=== PATIENT | male | born 1985 | race Caucasian/White ===

== ENCOUNTER 2017-04-07 05:55 | Inpatient (IN) | payer BC ==
[~2017-04-07] VITALS: Ht 172.7 cm; Wt 86.4 kg
[2017-04-07 06:44] LABS: EOSINOPHIL (%) 0.9 % (0-5); EOSINOPHIL COUNT 0.1 K/uL (0-0.3); IMMATURE GRANULOCYTE (%) 0.2 % (0.0-0.7); INSTRUMENT ABS NEUTROPHIL CT 8.1 K/uL; LYMPHOCYTE COUNT 1.8 K/uL (1.0-2.8); MCHC 34.9 G/DL (30.0-36.0); MCV 86.1 FL (86-99); MEAN PLAT.VOLUME 9.6 uM^3 (9.0-12.4); MONOCYTE (%) 9.7 % (3-12); MONOCYTE COUNT 1.1 K/uL (0-0.8); NEUTROPHIL (%) 72.8 % (45-76); NEUTROPHIL COUNT 8.1 K/uL (1.8-6.4); PLATELET COUNT 197 K/uL (156-360); RBC DIS.WIDTH-CV 12.4 % (11.8-14.6); RBC DIS.WIDTH-SD 39.3 % (39-53); RED BLOOD COUNT 4.76 M/uL (4.00-5.50); WHITE BLOOD COUNT 11.1 K/uL (4.1-10.2)
[2017-04-07 07:02] LABS: ANION GAP 10 MEQ/L (2-14); CHLORIDE 104 MEQ/L (99-109); POTASSIUM 3.6 MEQ/L (3.7-5.4); SAMPLE HEMOLYSIS CHECK 0; SAMPLE ICTERIC CHECK 0; SAMPLE LIPEMIA CHECK 0; SODIUM 138 MEQ/L (136-147)
[2017-04-07 07:08] LABS: GFR ESTIMATE (CALCULATED) > 59 mL/min/; GLUCOSE 110 mg/dL (70-99); UREA NITROGEN (BUN) 13 mg/dL (9-23)
[2017-04-07 10:48] LABS: TROP-I INTERPRETATION NEGATIVE; TROPONIN-I < 0.01 ng/mL (0.0-0.30)
[2017-04-07 15:59] VITALS: BP 122/69
[2017-04-07 16:26] LABS: TROP-I INTERPRETATION NEGATIVE; TROPONIN-I < 0.01 ng/mL (0.0-0.30)
[2017-04-07 22:01] LABS: TROP-I INTERPRETATION NEGATIVE; TROPONIN-I < 0.01 ng/mL (0.0-0.30)
[2017-04-07 23:14] VITALS: BP 118/69
[2017-04-08 06:38] LABS: MCH 29.5 PG (29.0-34.0); MCHC 33.8 G/DL (30.0-36.0); MCV 87.2 FL (86-99); MEAN PLAT.VOLUME 9.5 uM^3 (9.0-12.4); PLATELET COUNT 177 K/uL (156-360); RBC DIS.WIDTH-CV 12.6 % (11.8-14.6); RBC DIS.WIDTH-SD 40.1 % (39-53); RED BLOOD COUNT 4.47 M/uL (4.00-5.50); WHITE BLOOD COUNT 7.6 K/uL (4.1-10.2)
[2017-04-08 07:04] LABS: ANION GAP 8 MEQ/L (2-14); CHLORIDE 108 MEQ/L (99-109); GFR ESTIMATE (CALCULATED) > 59 mL/min/; GLUCOSE 90 mg/dL (70-99); POTASSIUM 3.9 MEQ/L (3.7-5.4); SAMPLE HEMOLYSIS CHECK 0; SAMPLE ICTERIC CHECK 0; SAMPLE LIPEMIA CHECK 0; SODIUM 143 MEQ/L (136-147); UREA NITROGEN (BUN) 7 mg/dL (9-23)
[2017-04-08 07:30] VITALS: BP 121/61
[2017-04-08 12:42] LABS: METH RESISTANT S AUREUS PCR POSITIVE (NEGATIVE)
[2017-04-08 12:50] LABS: PROBE CHECK PASS
[2017-04-08 15:30] VITALS: BP 123/63
[2017-04-09 00:16] VITALS: BP 110/70
[2017-04-09 07:22] VITALS: BP 119/61
[2017-04-09] MEDS ORDERED: HIBICLENS118 ML TP (11:52)
[2017-04-09] MEDS ORDERED: ZYVOX600 MG PO (11:52)
[2017-04-09] MEDS ORDERED: MUPIROCIN1 GM TP (11:52)
[2017-04-09] MEDS ORDERED: TYLENOL REGULA325 MG PO (11:54)
[2017-04-09 16:52] VITALS: BP 115/58
[2017-04-10 00:55] VITALS: BP 110/60
[2017-04-10 09:13] VITALS: BP 118/80
== END 2017-04-10 12:45 | disposition home or self-care (01) | DRG 580 ==
LOC: EME 05:55 → EDOF 09:26 → 5EAST 09:26
PROVIDERS: Emergency Medicine; Internal Medicine
PROC: 0J910ZZ Drainage of Face Subcutaneous Tissue and Fascia, Open Approach (ICD-10-PCS; principal; 2017-04-09)
DX: L03.211 Cellulitis of face (principal); L02.01 Cutaneous abscess of face; L03.213 Periorbital cellulitis; L02.413 Cutaneous abscess of right upper limb; F17.200 Nicotine dependence, unspecified, uncomplicated; Z86.14 Personal history of Methicillin resistant Staphylococcus aureus infection; Z87.442 Personal history of urinary calculi; I20.9 Angina pectoris, unspecified
CPT/HCPCS: 70481; 80048; 80202; 84484; 85025; 85027; 85651; 87040; 87070; 87075; 87077; 87081; 87147; 87186; 87205; 87641; 93005; 99281; 99285; J0295; J1650; J2270; J3010; J3370; J7030; J7050; S0028